=== PATIENT | male | born 1995 | race Caucasian/White ===

== ENCOUNTER 2019-04-07 11:22 | Emergency (ER) | payer BC ==
[2019-04-07 12:05] VITALS: BP 133/87
--- NOTE | 2019-04-07 12:47 | UC ---
Bite Injury/Animal HPI - HPI Summary HPI Summary: 24-year-old male comes in with a chief complaint of 2 tick bites. Patient had one on his left leg mild left buttock. He took them off himself. No rash no fevers feels slightly tired today. He has had Lyme in the past. 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 - History of Current Complaint Chief Complaint: [place] Stated Complaint: SEVERAL TICK BITES Time Seen by Provider: 04/07/19 12:06 Pain Intensity: 0 - Allergies/Home Medications Allergies/Adverse Reactions: Allergies Allergy/AdvReac Type Severity Reaction Status Date / Time No Known Allergies Allergy Verified 04/07/19 11:58 Home Medications: Home Medications Dextroamphetamine/Amphetamine [Adderall Xr 30 mg Capsule] 30 mg PO DAILY [History Confirmed 04/07/19] PMH/Surg Hx/FS Hx/Imm Hx Previously Healthy: Yes - HX LYME DX - Surgical History Surgical History: Yes Surgery Procedure, Year, and Place: tonsils. wisdom teeth - Family History Known Family History: Positive: Non-Contributory - Social History Alcohol Use: Occasionally Alcohol Amount: 2XMONTH Substance Use Type: Marijuana Smoking Status (MU): Never Smoked Tobacco Type: eCigarettes Review of Systems All Other Systems Reviewed And Are Negative: Yes Constitutional: Positive: Fatigue Skin: Positive: Other - SEE HPI Eyes: Positive: Negative ENT: Positive: Negative Respiratory: Positive: Negative Cardiovascular: Positive: Negative Gastrointestinal: Positive: Negative Motor: Positive: Negative Musculoskeletal: Positive: Negative Neurological: Positive: Negative Psychological: Positive: Negative Is Patient Immunocompromised?: No Physical Exam Triage Information Reviewed: Yes Appearance: Well-Appearing, No Pain Distress, Well-Nourished Vital Signs: Initial Vital Signs Temp 98.2 F 04/07/19 11:59 Pulse 111 04/07/19 11:59 Resp 16 04/07/19 11:59 BP 133/87 04/07/19 11:59 Pulse Ox 100 04/07/19 11:59 Vital Signs Reviewed: Yes Eye Exam: Normal Eyes: Positive: Conjunctiva Clear Neck: Positive: Supple Respiratory: Positive: No respiratory distress Musculoskeletal Exam: Normal Musculoskeletal: Positive: Strength Intact, ROM Intact Neurological Exam: Normal Neurological: Positive: Alert, Muscle Tone Normal Psychological Exam: Normal Psychological: Positive: Age Appropriate Behavior Skin: Positive: Other - NO RASH AT TICK BITE SITES Bite Injury Course/Dx - Course Course Of Treatment: DISCUSSED LYME DISEASE AND ABX TREATMENT. PATIENT PREFERS TO HAVE DOXYCYCLINE RX AT THIS TIME. - Differential Dx/Diagnosis Provider Diagnosis: Tick bite Discharge - Sign-Out/Discharge Documenting (check all that apply): Patient Departure All imaging exams completed and their final reports reviewed: No Studies - Discharge Plan Condition: Stable Disposition: HOME Prescriptions: DOXYcycline CAP(*) [DOXYcycline 100MG CAP(*)] 100 mg PO BID #[id number] cap Referrals: [facility] [place] [facility] [Outside] Additional Instructions: FOLLOW UP WITH YOUR DOCTOR IF NOT COMPLETELY IMPROVED. TREATMENT FOR LYME DISEASE, WITH OR WITHOUT BULLS EYE RASH, IS DOXYCYCLINE 100MG TWICE A DAY FOR 14 DAYS. THE PROPHYLAXIS TREATMENT FOR A TICK BITE WITHOUT LYME DISEASE SYMPTOMS OR BULLS EYE RASH IS A SINGLE DOSE OF DOXYCYCLINE 200MG. GET RECHECKED SOONER IF YOUR CONDITION WORSENS OR ANY QUESTIONS OR CONCERNS. - Billing Disposition and Condition Condition: STABLE Disposition: Home
== END 2019-04-07 12:55 | disposition home or self-care (01) ==
LOC: UCCORT 11:22
DX: T63.481A Toxic effect of venom of other arthropod, accidental (unintentional), initial encounter (principal); Y92.9 Unspecified place or not applicable; Z86.19 Personal history of other infectious and parasitic diseases
CPT/HCPCS: 99202; G0463